=== PATIENT | male | born 2005 | race Caucasian/White ===

== ENCOUNTER 2023-01-27 17:21 | Emergency (ER) | payer BC, SELFPAY ==
[2023-01-27 17:22] VITALS: PULSE 91; RESP 18; TEMP 37.5; O2SAT 98; BMI 20.2
[2023-01-27 17:29] VITALS: BP 106/60
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
[2023-01-27] MEDS: Diphth,Pertuss(Acell),Tet Vac 0.5 ML Vial IM (17:52)
[2023-01-27] MEDS: Lidocaine 1% /Epi 1:100 (20ml) 20 ML Vial INFILT (17:52)
[2023-01-27 19:27] VITALS: BP 113/72; PULSE 104; RESP 14; O2SAT 99
== END 2023-01-27 19:29 | disposition home or self-care (01) ==
PROVIDERS: Emergency Provider Emergency Medicine; PCP Pediatrics; Visit Provider Emergency Medicine
DX: S01.01XA Laceration without foreign body of scalp, initial encounter (principal); S06.9X1A Unspecified intracranial injury with loss of consciousness of 30 minutes or less, initial encounter; Y92.410 Unspecified street and highway as the place of occurrence of the external cause; V49.40XA Driver injured in collision with unspecified motor vehicles in traffic accident, initial encounter; J45.909 Unspecified asthma, uncomplicated; Z23 Encounter for immunization
CPT/HCPCS: 12002; 70450; 71046; 72170; 90471; 90715; 99285